=== PATIENT | female | born 1995 | race Caucasian/White ===

== ENCOUNTER 2017-06-29 10:39 | Outpatient (CLI) | payer MEDICAID ==
--- NOTE | 2017-06-29 12:52 | RADIOLOGY REPORT (SQ) ---
EXAM DESCRIPTION: U/S PROFILE W/O STRESS COMPLETED DATE/TIME: 06/29/2017 12:19 pm REASON FOR STUDY: BPP, BHARGAVI, presentation COMPARISON: None. TECHNIQUE: Limited rodriguez-scale realtime and static images of the fetus to measure specified parameter s. LIMITATIONS: None. FINDINGS: HEART RATE: 135 beats per minute. BHARGAVI: 17.5 cm. BREATHING MOVEMENT: 2 points. MOVEMENT: 2 points. POSTURE AND TONE: 2 points. QUALITATIVE BHARGAVI: 2 points. OTHER: Vertex presentation PE IMPRESSION: BIOPHYSICAL PROFILE: 03/10. Trimester of : Third - 28 weeks to delivery COMMENT: BREATHING MOVEMENTS: 2 POINTS: PRESENT 0 POINTS: ABSENT MOTION: 2 POINTS: PRESENT 0 POINTS: ABSENT TONE: 2 POINTS: PRESENT 0 POINTS: ABSENT AMNIOTIC FLUID VOLUME: 2 POINTS: LARGEST POCKET GREATER THAN 2 CM DEPTH. 0 POINTS: NO POCKET OF 2 CM. TECHNICAL DOCUMENTATION: JOB ID: [id number] [employer] [place] - 2- All Rights Reserved
== END 2017-06-29 13:06 | disposition home or self-care (01) ==
LOC: LC 10:39
PROVIDERS: ATTEND Student in an Organized Health Care Education/Training Program
PROC: 4A1HXCZ Monitoring of Products of Conception, Cardiac Rate, External Approach (ICD-10-PCS; principal; 2017-06-29)
DX: O36.8130 Decreased fetal movements, third trimester, not applicable or unspecified (principal); Z3A.34 34 weeks gestation of pregnancy
CPT/HCPCS: 76819

== ENCOUNTER 2017-07-13 01:11 | Inpatient (IN) | payer MEDICAID ==
[2017-07-13 02:04] LABS: AMORPHOUS SEDIMENT,URINE TRACE /HPF; APPEARANCE,URINE CLOUDY; BILIRUBIN,URINE NEGATIVE (NEGATIVE); GLUCOSE, URINE NEGATIVE (NEGATIVE); KETONES,URINE NEGATIVE (NEGATIVE); LEUKOCYTE ESTERASE,URINE TRACE (NEGATIVE); NITRITE,URINE NEGATIVE (NEGATIVE); PROTEIN,URINE 100 mg/dL (NEGATIVE); URINE SPECIFIC GRAVITY 1.014; UROBILINOGEN,URINE NEGATIVE mg/dL (<2.0)
[2017-07-13 02:08] LABS: AMNISURE (ROM) POSITIVE (NEGATIVE)
[2017-07-13 02:20] LABS: URINE BARBITURATES SCREEN NEGATIVE; URINE METHADONE SCREEN NEGATIVE; URINE OPIATES LOW NEGATIVE; URINE PHENCYCLIDINE SCREEN NEGATIVE
[2017-07-13] MEDS ORDERED: PENICILLIN G POTASSIUM 5,000,000 UNIT in DEXTROSE 5%-WATER 100 ML IV ONE (02:20)
[2017-07-13] MEDS ORDERED: RINGERS SOLUTION,LACTATED 1,000 ML IV PRN (02:20)
[2017-07-13] MEDS ORDERED: PENICILLIN G-K 5 MILLION UNIT VIAL IV PRN (02:28)
[2017-07-13] MEDS ORDERED: PENICILLIN G-K 5 MILLION UNIT VIAL ONE ×4 (02:28→10:43)
[2017-07-13 03:05] LABS: ABSOLUTE EOSINOPHILS # (AUTO) 0.1 10^3/uL (0.0-0.6); ABSOLUTE LYMPHOCYTES (AUTO) 2.4 10^3/uL (0.5-4.7); ABSOLUTE MONOCYTES (AUTO) 1.4 10^3/uL (0.1-1.4); ABSOLUTE NEUT (AUTO) 10.3 10^3/uL (1.7-8.2); BASOPHILS % (AUTO) 0.2 % (0-2); HEMATOCRIT 36.7 % (36.0-47.0); HEMOGLOBIN 12.4 g/dL (12.0-15.5); HGB HCT DIFFERENCE 0.5; MEAN CORPUSCULAR HEMOGLOBIN 32.2 pg (27.0-33.4); MEAN CORPUSCULAR HGB CONC 33.9 g/dL (32.0-36.0); MEAN CORPUSCULAR VOLUME 95 fl (80-97); MONOCYTES % (AUTO) 9.7 % (3-13); RED BLOOD COUNT 3.87 10^6/uL (3.72-5.28); RED CELL DISTRIBUTION WIDTH 13.5 % (11.5-14.0); SEGMENTED NEUTROPHILS % (AUTO) 72.1 % (42-78); WHITE BLOOD COUNT 14.3 10^3/uL (4.0-10.5)
[2017-07-13] MEDS ORDERED: OXYTOCIN/NORMAL SALINE 20 UNIT/1,000 ML RTUINJ IV PRN ×3 (06:13→14:11)
[2017-07-13] MEDS ORDERED: OXYTOCIN/NORMAL SALINE 0 UNIT/0 ML RTUINJ ONE (06:16)
[2017-07-13] MEDS ORDERED: PENICILLIN G POTASSIUM 2,500,000 UNIT in DEXTROSE 5%-WATER 50 ML IV SCH (06:21)
[2017-07-13] MEDS ORDERED: ONDANSETRON HCL INJ/PF 4 MG/2 ML SDV ONE (08:16)
[2017-07-13] MEDS ORDERED: MISOPROSTOL 0.1 MG TABLET PV ONE (08:41)
[2017-07-13] MEDS ORDERED: MISOPROSTOL 0.1 MG TABLET ONE (08:45)
[2017-07-13] MEDS ORDERED: ONDANSETRON HCL INJ/PF 4 MG/2 ML SDV IV ONE (09:00)
[2017-07-13] MEDS: PENICILLIN G-K 5 MILLION UNIT VIAL IV SCH ×4 (10:00→22:00)
[2017-07-13] MEDS ORDERED: NALBUPHINE HCL INJ 10 MG/1 ML AMPULE IM ONE (11:08)
[2017-07-13] MEDS ORDERED: PROMETHAZINE HCL INJ 25 MG/1 ML VIAL IV ONE (11:10)
[2017-07-13] MEDS ORDERED: NALBUPHINE HCL INJ 10 MG/1 ML AMPULE IV ONE (11:11)
[2017-07-13] MEDS ORDERED: NALBUPHINE HCL INJ 10 MG/1 ML AMPULE ONE (11:13)
[2017-07-13] MEDS ORDERED: PROMETHAZINE HCL INJ 25 MG/1 ML VIAL ONE (11:13)
[2017-07-13] MEDS ORDERED: MISOPROSTOL 0.2 MG TABLET ONE (13:07)
[2017-07-13] MEDS ORDERED: OXYTOCIN/NORMAL SALINE 20 UNIT/1,000 ML RTUINJ ONE (13:07)
[2017-07-13] MEDS ORDERED: LIDOCAINE 1% INJ-PF (10 MG/ML) 30 ML SDV ONE (13:07)
[2017-07-13] MEDS ORDERED: ZOLPIDEM TARTRATE 5 MG TABLET PO PRN (14:11)
[2017-07-13] MEDS ORDERED: DIPH/PERTUSS(ACELL)/TETANUS VAC/PF 0.5 ML SYR (>=10YO) IM PRN (14:11)
[2017-07-13] MEDS ORDERED: MEASLES,MUMPS&RUBELLA VACC/PF 0.5 ML VIAL SUBCUT PRN (14:11)
[2017-07-13] MEDS ORDERED: ACETAMINOPHEN 650 MG SUPP.RECT PR PRN (14:11)
[2017-07-13] MEDS ORDERED: PROMETHAZINE HCL 25 MG SUPP.RECT PR PRN (14:11)
[2017-07-13] MEDS ORDERED: GLYCERIN/WITCH HAZEL LEAF 1 EACH MED..PAD TP PRN (14:11)
[2017-07-13] MEDS ORDERED: DIBUCAINE 1% OINTMENT 28 GM TP PRN (14:11)
[2017-07-13] MEDS ORDERED: PROMETHAZINE HCL 25 MG TABLET PO PRN (14:11)
[2017-07-13] MEDS ORDERED: DIPHENHYDRAMINE HCL 25 MG CAPSULE PO PRN (14:11)
[2017-07-13] MEDS ORDERED: ACETAMINOPHEN WITH CODEINE #3 TABLET PO PRN ×2 (14:11)
[2017-07-13] MEDS ORDERED: NA PHOS,M-B/NA PHOS,DI-BA (ADULT) 133 ML ENEMA PR PRN (14:11)
[2017-07-13] MEDS ORDERED: PROMETHAZINE HCL INJ 25 MG/1 ML VIAL IV PRN (14:11)
[2017-07-13] MEDS ORDERED: PSEUDOEPHEDRINE HCL 30 MG TABLET PO PRN (14:11)
[2017-07-13] MEDS ORDERED: MAGNESIUM HYDROXIDE SUSP 30 ML UDCUP PO PRN (14:11)
[2017-07-13] MEDS ORDERED: BENZOCAINE/MENTHOL AEROSOL SPRAY 56 ML TOP PRN (14:11)
[2017-07-13] MEDS ORDERED: IBUPROFEN 800 MG TABLET ONE (14:34)
--- NOTE | 2017-07-13 15:25 | Delivery Summary ---
Del Sum A-C Datetime Report Generated by CPN: 07/13/2017 15:25 DELIVERY PERSONNEL DELIVERY PERSONNEL: [id number] Delivery Doctor:: Conchis Rush CNM Labor and Delivery Nurse:: Lilian Clarke, evs manager Nurse:: Leonela Patel, RNC Nursery Nurse:: Elis Shea, RN MATERNAL INFORMATION Delivery Anesthesia: None Medications After Delivery: Pitocin Bolus-Please Comment Meds After Delivery Comment: Pitocin 20 units in 1 L NS bolusing per order Estimated Blood Loss (ml): 350 Maternal Complications: None Provider Comments: SHARRI, LOOSE NUCHAL CORD-DELIVERED THROUGH. VIABLE FEMALE WITHOUT SPONTANEOUS CRY AND NOT RESPONDING TO STIMULATION, CORD CUT AND BABY TX TO WARMER FOR BETTER ASSESSMENT. RN BELLEVANCE PRESENT AND INITIATED PPV, CNM APPLIED PULSE OX AND NURSERY NURSE CALLED. NURSERY RN IN WITHIN 2 MINS AFTER WITH BABY STARTING TO HAVE SPONTANEOUS RESPIRATIONS. RIGHT PERIURETHRAL LACERATION NOT REPAIRED. SPONTANEOUS INTACT PLACENTA WITH 3VC. MOTHER STABLE IN L_D #2, TX TO NURSERY FOR CLOSER OBSERVATION-STABLE UPON TRANSFER. LABOR SUMMARY EDC: 08/10/2017 00:00 No. Babies in Womb: 1 Attempted: No Labor Anesthesia: IV Sedation LABOR INFORMATION Reason for Induction: Premature Rupture of Membranes Onset of Labor: 07/13/2017 11:30 Complete Dilatation: 07/13/2017 13:03 Cervical Ripening Agents: Cytotec @ Oxytocin: N/A Group B Beta Strep: Unknown Antibiotics # of Doses: 3 Antibiotics Time of Last Dose: 1045 Name of Antibiotic Given: PCN Steroids Given: None Reason Steroids Not Administered: Not Applicable MEMBRANES Membranes Rupture Method: Spontaneous Rupture of Membranes: 07/13/2017 00:30 Length of Rupture (hr): 12.95 Amniotic Fluid Color: Clear Amniotic Fluid Amount: Moderate Amniotic Fluid Odor: Normal STAGES OF LABOR Stage 1 hr: 1 Stage 1 min: 33 Stage 2 hr: 0 Stage 2 min: 24 Stage 3 hr: 0 Stage 3 min: 10 Total Time in Labor hr: 2 Total Time in Labor min: 7 VAGINAL DELIVERY Episiotomy: None Laceration #1: Periurethral Laceration Extension #1: N/A Laceration Repair: Not Applicable Sponge Count Correct: N/A Sharps Count Correct: N/A CSECTION DELIVERY Primary Indication: N/A Secondary Indication: N/A CSection Incidence: N/A Labor: N/A Elective: N/A CSection Incision: N/A BABY A INFORMATION Infant Delivery Date/Time: 07/13/2017 13:27 Method of Delivery: Vaginal Born in Route : No : N/A Forceps: N/A Vacuum Extraction: N/A Shoulder Dystocia : No PRESENTATION/POSITION BABY A Presentation: Cephalic Cephalic Presentation: Vertex Vertex Position: Right Occipital Anterior Breech Presentation: N/A PLACENTA INFORMATION BABY A Placenta Delivery Time : 07/13/2017 13:37 Placenta Method of Delivery: Spontaneous Placenta Status: Delivered SCORES BABY A Heart Rate 1 min: >100 bpm Resp Effort 1 min: Absent Reflex Irritability 1 min: No Response Muscle Tone 1 min: Flaccid Color 1 min: Blue/Pale Resuscitation Effort 1 min: Tactile Stimulation SCORE 1 MIN: 2 Heart Rate 5 min: >100 bpm Resp Effort 5 min: Slow, Irregular Reflex Irritability 5 min: No Response Muscle Tone 5 min: Some Flexion of Extremities Color 5 min: Body [place], Extremities Blue SCORE 5 MIN: 5 Heart Rate 10 min: >100 bpm Resp Effort 10 min: Slow, Irregular Reflex Irritability 10 min: No Response Muscle Tone 10 min: Some Flexion of Extremities Color 10 min: Body [place], Extremities Blue SCORE 10 MIN: 5 Heart Rate 15 min: >100 bpm Resp Effort 15 min: Good Cry Reflex Irritability 15 min: Cough or Sneeze or Pulls Away Muscle Tone 15 min: Active Motion Color 15 min: Body [place], Extremities Blue SCORE 15 MIN: 9 INFANT INFORMATION BABY A Gestational Age at Delivery: 36.0 Gestational Status: Late - 34- 36.6 Weeks Infant Outcome : Liveborn Infant Condition : Fair Sex: Female IDENTIFICATION BABY A Verification Date/Time: 07/13/2017 13:53 ID Band Number: [id number] Mother's Name Verified: Yes RN Verifying : CTawnya Clarke, DTawnya Patel, RNC WEIGHT/LENGTH BABY A Infant Birthweight (gm): 2655 Weight (lb): 5 Infant Weight (oz): 14 Length (in): 19.50 Length (cm): 49.53 CORD INFORMATION BABY A No. Cord Vessels: 3 Nuchal Cord : Around Neck x1, Loose Cord Blood Taken: Yes-For Storage (Mom's Blood type +) Infant Suction: Mouth; Nose ASSESSMENT BABY A Infant Complications: Decreased Variability Skin to Skin: No Skin to Skin Time (min): 0 BABY B INFORMATION : N/A SIGNATURES Assignment: Florencia Hollis MD Signature: with User ID: [email or web address] : with User ID: [email or web address] : I was personally available for consultation and serving as supervising physician for the P.
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
[2017-07-13] MEDS: DOCUSATE SODIUM 100 MG CAPSULE PO SCH (17:41)
[2017-07-13] MEDS: FERROUS SULFATE 325 MG TABLET PO SCH (17:41)
[2017-07-13] MEDS ORDERED: INFLUENZA ADLT QUAD (36MOS+) 2017-18 VAC 0.5 ML SYR IM PRN (18:56)
[2017-07-13] MEDS: IBUPROFEN 800 MG TABLET PO SCH (22:07)
[2017-07-13] MEDS: FAMOTIDINE 20 MG TABLET PO SCH (22:07)
[2017-07-14] MEDS: IBUPROFEN 800 MG TABLET PO SCH ×3 (05:30→21:52)
[2017-07-14] MEDS: PENICILLIN G-K 5 MILLION UNIT VIAL IV SCH ×2 (05:38→05:39)
[2017-07-14 07:41] LABS: HEMATOCRIT 31.4 % (36.0-47.0); HEMOGLOBIN 10.7 g/dL (12.0-15.5); HGB HCT DIFFERENCE 0.7; MEAN CORPUSCULAR HEMOGLOBIN 32.5 pg (27.0-33.4); MEAN CORPUSCULAR VOLUME 96 fl (80-97); RED BLOOD COUNT 3.28 10^6/uL (3.72-5.28); RED CELL DISTRIBUTION WIDTH 13.4 % (11.5-14.0); WHITE BLOOD COUNT 14.3 10^3/uL (4.0-10.5)
--- NOTE | 2017-07-14 10:05 | PDOC PROGRESS REPORT ---
Subjective-OB Subjective: Post Delivery Day: 21 year old. Denies any needs at this time Doing well, no c/o, hsb at BS, breast feeding, voiding, eating, mod lochia Physical Exam (OB) Vital Signs: Temp Pulse Resp BP Pulse Ox 98.3 F 66 16 100/56 L 98 07/14/17 08:00 07/14/17 08:00 07/14/17 08:00 07/14/17 08:00 07/14/17 08:00 Intake & Output 07/13/17 07/14/17 07/15/17 06:59 06:59 06:59 Weight 94.8 kg - PIH/Pre-Eclampsia Clonus: Negative Headache: Absent Epigastric Pain: No Visual Changes: No - Lochia Lochia Amount: Small 10-25 ml Lochia Color: Rubra/Red - Abdomen Description: Round Hernia Present: No Fundal Description: Firm Fundal Height: u/u - u/2 Objective-Diagnostic Laboratory: 07/14/17 07:17 07/14/17 07:17 WBC 14.3 H RBC 3.28 L Hgb 10.7 L Hct 31.4 L MCV 96 MCH 32.5 MCHC 34.0 RDW 13.4 Plt Count 122 L Assessment and Plan(PN) - Assessment and Plan (1) Vaginal delivery Is this a current diagnosis for this admission?: Yes (2) care insufficient Qualifiers: Trimester: unspecified trimester Qualified Code(s): O09.30 - Supervision of with insufficient care, unspecified trimester Is this a current diagnosis for this admission?: Yes (3) Asthma Qualifiers: Asthma severity: mild Is this a current diagnosis for this admission?: Yes (4) premature rupture of membranes (PPROM) with unknown onset of labor Is this a current diagnosis for this admission?: Yes - Time Spent with Patient Time with patient: Less than 15 minutes Smoking Education Provided: Over 3 minutes Medications reviewed and adjusted accordingly: Yes - Disposition Anticipated Discharge: Home Within: within 24 hours
[2017-07-14] MEDS: SENNOSIDES/DOCUSATE 8.6-50 MG 1 EACH TABLET PO SCH (10:47)
[2017-07-14] MEDS: DOCUSATE SODIUM 100 MG CAPSULE PO SCH ×2 (10:48→17:38)
[2017-07-14] MEDS: FAMOTIDINE 20 MG TABLET PO SCH ×2 (10:48→21:52)
[2017-07-14] MEDS: FERROUS SULFATE 325 MG TABLET PO SCH ×2 (10:48→17:38)
[2017-07-14] MEDS: PRENATAL VITAMIN W DHA CAPSULE PO SCH (10:48)
[2017-07-15] MEDS: IBUPROFEN 800 MG TABLET PO SCH ×2 (06:05→13:13)
[2017-07-15] MEDS: FAMOTIDINE 20 MG TABLET PO SCH (09:23)
[2017-07-15] MEDS: FERROUS SULFATE 325 MG TABLET PO SCH (09:23)
[2017-07-15] MEDS: PRENATAL VITAMIN W DHA CAPSULE PO SCH (09:23)
[2017-07-15] MEDS: SENNOSIDES/DOCUSATE 8.6-50 MG 1 EACH TABLET PO SCH (09:24)
[2017-07-15] MEDS: DOCUSATE SODIUM 100 MG CAPSULE PO SCH (09:24)
[2017-07-15 10:44] VITALS: BP 95/43
--- NOTE | 2017-07-15 11:40 | PDOC DISCHARGE SUMMARY ---
Final Diagnosis Discharge Date: 07/15/17 - Final Diagnosis (1) Acute blood loss anemia Is this a current diagnosis for this admission?: Yes (2) delivery Is this a current diagnosis for this admission?: Yes (3) Vaginal delivery Is this a current diagnosis for this admission?: Yes (4) care insufficient Is this a current diagnosis for this admission?: Yes (5) Asthma Is this a current diagnosis for this admission?: Yes (6) premature rupture of membranes (PPROM) with unknown onset of labor Is this a current diagnosis for this admission?: Yes Discharge Data - Discharge Medication Home Medications: Vit/Iron Fum/Folic AC [ Tablet] 1 tab PO DAILY 06/29/17 Reason(s) for Admission: Other - premature rupture of membranes Procedures: Ultrasound Intrapartum Procedure(s): Spontaneous Vaginal Delivery Complication(s): Laceration-Periurethral - Diagnosis Test Laboratory: Temp Pulse Resp BP Pulse Ox 98.3 F 68 16 97/58 L 98 07/15/17 07:38 07/15/17 07:38 07/14/17 20:24 07/15/17 07:38 07/15/17 07:38 07/13/17 07/13/17 07/14/17 01:45 02:35 07:17 RBC 3.87 3.28 L Hgb 12.4 10.7 L Hct 36.7 31.4 L Urine Opiates Screen NEGATIVE - Discharge information/Instructions Discharge Activity: Activity As Tolerated, Balance Activity w/Rest, No Lifting Over 10 Pounds, Pelvic Rest, No tub bath Discharge Diet: Regular Disposition: HOME, SELF-CARE Follow up with: [facility] in: 4, Weeks
== END 2017-07-15 14:30 | disposition home or self-care (01) | DRG 775 ==
LOC: LC 01:11 → LR 02:22 → 2S 16:08
PROVIDERS: ADMIT Obstetrics & Gynecology Gynecology; ATTEND Obstetrics & Gynecology Gynecology
PROC: 10E0XZZ Delivery of Products of Conception, External Approach (ICD-10-PCS; principal; 2017-07-13)
PROC: 4A1HXCZ Monitoring of Products of Conception, Cardiac Rate, External Approach (ICD-10-PCS; 2017-07-13)
PROC: 3E0234Z Introduction of Serum, Toxoid and Vaccine into Muscle, Percutaneous Approach (ICD-10-PCS; 2017-07-15)
DX: O42.013 Preterm premature rupture of membranes, onset of labor within 24 hours of rupture, third trimester (principal); O99.52 Diseases of the respiratory system complicating childbirth; J45.909 Unspecified asthma, uncomplicated; O71.82 Other specified trauma to perineum and vulva; O99.344 Other mental disorders complicating childbirth; F32.9 Major depressive disorder, single episode, unspecified; F41.9 Anxiety disorder, unspecified; O69.81X0 Labor and delivery complicated by cord around neck, without compression, not applicable or unspecified; Z87.891 Personal history of nicotine dependence; Z88.3 Allergy status to other anti-infective agents; Z23 Encounter for immunization; Z3A.36 36 weeks gestation of pregnancy; Z37.0 Single live birth
CPT/HCPCS: 36415; 80307; 81001; 84112; 85025; 85027; 86592; 86850; 86900; 86901; 90686; 99465; J2300; J2405; J2540; J2550; J2590; J3490

== ENCOUNTER 2018-04-29 12:16 | Emergency (ER) | payer MEDICAID ==
--- NOTE | 2018-04-29 13:05 | ER Document Report ---
ED GI/ - General Chief Complaint: Vaginal Bleeding Stated Complaint: VAGINAL BLEEDING/CRAMPING Time Seen by Provider: 04/29/18 12:56 Mode of Arrival: Ambulatory Information source: Patient TRAVEL OUTSIDE OF THE [place] IN LAST 30 DAYS: No - HPI Notes: 04/29/18 13:05 Dictated - Related Data Allergies/Adverse Reactions: erythromycin base Adverse Reaction (Verified 07/13/17 01:25) Past Medical History - General Last Menstrual Period: 03/01/18 - Social History Smoking Status: Former Smoker Frequency of alcohol use: None Drug Abuse: None Family History: Reviewed & Not Pertinent Patient has suicidal ideation: No Patient has homicidal ideation: No Pulmonary Medical History: Reports: Hx Asthma Renal/ Medical History: Denies: Hx Peritoneal Dialysis Review of Systems - Review of Systems Notes: Dictated Physical Exam - Vital signs Vitals: Temp Pulse Resp BP Pulse Ox 98.7 F 67 18 121/58 L 98 04/29/18 12:22 04/29/18 12:22 04/29/18 12:22 04/29/18 12:22 04/29/18 12:22 - Notes Notes: Dictated Course - Vital Signs Vital signs: Temp Pulse Resp BP Pulse Ox 98.7 F 67 18 121/58 L 98 04/29/18 12:22 04/29/18 12:22 04/29/18 12:22 04/29/18 12:22 04/29/18 12:22 - Laboratory Result Diagrams: 04/29/18 13:05 Laboratory results interpreted by me: 04/29/18 13:05 WBC 11.3 H - Diagnostic Test Radiology reviewed: Reports reviewed - Ultrasound of the pelvis shows 7-week Discharge - Discharge Clinical Impression: Intrauterine normal Qualifiers: Trimester: first trimester Qualified Code(s): Z34.91 - Encounter for supervision of normal , unspecified, first trimester Condition: Fair Disposition: HOME, SELF-CARE Instructions: (OM) Referrals: ALDAIR MARTINEZ MD [Primary Care Provider] - Follow up as needed
[2018-04-29 13:10] LABS: ABSOLUTE BASOPHILS # (AUTO) 0.1 10^3/uL (0.0-0.2); ABSOLUTE EOSINOPHILS # (AUTO) 0.4 10^3/uL (0.0-0.6); ABSOLUTE LYMPHOCYTES (AUTO) 2.7 10^3/uL (0.5-4.7); ABSOLUTE MONOCYTES (AUTO) 0.9 10^3/uL (0.1-1.4); ABSOLUTE NEUT (AUTO) 7.2 10^3/uL (1.7-8.2); BASOPHILS % (AUTO) 0.7 % (0-2); EOSINOPHILS % (AUTO) 3.6 % (0-6); HEMATOCRIT 37.6 % (36.0-47.0); HEMOGLOBIN 12.8 g/dL (12.0-15.5); LYMPHOCYTES % (AUTO) 23.5 % (13-45); MEAN CORPUSCULAR HEMOGLOBIN 31.8 pg (27.0-33.4); MEAN CORPUSCULAR HGB CONC 34.1 g/dL (32.0-36.0); MEAN CORPUSCULAR VOLUME 93 fl (80-97); MONOCYTES % (AUTO) 8.3 % (3-13); PLATELET COUNT 203 10^3/uL (150-450); RED BLOOD COUNT 4.03 10^6/uL (3.72-5.28); RED CELL DISTRIBUTION WIDTH 13.1 % (11.5-14.0); SEGMENTED NEUTROPHILS % (AUTO) 63.9 % (42-78); TOTAL CELLS COUNTED % (AUTO) 100 %; WHITE BLOOD COUNT 11.3 10^3/uL (4.0-10.5)
--- NOTE | 2018-04-29 14:15 | RADIOLOGY REPORT (SQ) ---
EXAM DESCRIPTION: U/S BL3RPUM TRNABD 1GES W/ODOP COMPLETED DATE/TIME: 04/29/2018 2:04 pm REASON FOR STUDY: Abdominal cramp/spotting/ COMPARISON: None. TECHNIQUE: Transabdominal static and realtime grayscale images acquired of the pelvis. Additional se lected spectral and color Doppler images recorded. All images stored on PACs. bHCG: Not available. CLINICAL DATES: LMP 03/01/2018. 8 weeks 3 days LIMITATIONS: None. FINDINGS: FETUS: Single Living intrauterine . ULTRASOUND EGA: 8 weeks 4 days ULTRASOUND SASKIA: 12/05/2018 EFW: Not applicable less than 20 weeks CRL: 2 cm. FHR: 175 beats per minute. AMNIOTIC FLUID: Adequate amount PLACENTA: Not yet developed due to early gestation SUBCHORIONIC BLEED: No SIZE OF BLEED: Not applicable. UTERUS: No masses. No anomalies. CERVICAL LENGTH: 3.9 cm. Closed. RIGHT ADNEXA: Ovary not seen. No adnexal free fluid. No adnexal masses. LEFT ADNEXA: Ovary not seen. No adnexal free fluid. No adnexal masses. FREE FLUID: None. OTHER: No other significant finding. IMPRESSION: LIVING INTRAUTERINE . EGA 8 weeks 4 days. Trimester of : First - 0 to 13 weeks. TECHNICAL DOCUMENTATION: JOB ID: [id number] [employer]- All Rights Reserved rev-12/18 Reading location - IP/workstation name: [email or web address]
[2018-04-29 14:34] VITALS: BP 112/60
== END 2018-04-29 14:30 | disposition home or self-care (01) ==
LOC: ER 12:16
DX: O20.9 Hemorrhage in early pregnancy, unspecified (principal); O99.511 Diseases of the respiratory system complicating pregnancy, first trimester; J45.909 Unspecified asthma, uncomplicated; Z3A.01 Less than 8 weeks gestation of pregnancy; Z88.1 Allergy status to other antibiotic agents
CPT/HCPCS: 36415; 76801; 84702; 85025; 99284

== ENCOUNTER 2018-12-08 11:53 | Inpatient (IN) | payer MEDICAID ==
[2018-12-08 12:52] LABS: APPEARANCE,URINE SLIGHTLY-CLOUDY; BILIRUBIN,URINE NEGATIVE (NEGATIVE); COLOR,URINE YELLOW; GLUCOSE, URINE NEGATIVE (NEGATIVE); KETONES,URINE NEGATIVE (NEGATIVE); LEUKOCYTE ESTERASE,URINE MODERATE (NEGATIVE); NITRITE,URINE NEGATIVE (NEGATIVE); PROTEIN,URINE NEGATIVE (NEGATIVE); URINE SPECIFIC GRAVITY 1.018; UROBILINOGEN,URINE NEGATIVE mg/dL (<2.0)
[2018-12-08 13:08] LABS: URINE AMPHETAMINES SCREEN NEGATIVE; URINE BARBITURATES SCREEN NEGATIVE; URINE BENZODIAZEPINES SCREEN NEGATIVE; URINE COCAINE SCREEN NEGATIVE; URINE MARIJUANA (THC) SCREEN NEGATIVE; URINE METHADONE SCREEN NEGATIVE; URINE PHENCYCLIDINE SCREEN NEGATIVE
[2018-12-08] MEDS ORDERED: OXYTOCIN/NORMAL SALINE 20 UNIT/1,000 ML RTUINJ ONE (15:43)
[2018-12-08] MEDS ORDERED: LIDOCAINE 1% INJ-PF (10 MG/ML) 30 ML SDV ONE (15:43)
[2018-12-08] MEDS ORDERED: MISOPROSTOL 0.2 MG TABLET ONE (15:43)
[2018-12-08] MEDS ORDERED: OXYTOCIN 10 UNIT/ML VIAL ONE (15:43)
[2018-12-08 15:55] LABS: ABSOLUTE EOSINOPHILS # (AUTO) 0.1 10^3/uL (0.0-0.6); ABSOLUTE LYMPHOCYTES (AUTO) 2.7 10^3/uL (0.5-4.7); ABSOLUTE NEUT (AUTO) 9.8 10^3/uL (1.7-8.2); BASOPHILS % (AUTO) 0.2 % (0-2); EOSINOPHILS % (AUTO) 0.6 % (0-6); HEMATOCRIT 38.6 % (36.0-47.0); HEMOGLOBIN 12.8 g/dL (12.0-15.5); LYMPHOCYTES % (AUTO) 19.8 % (13-45); MEAN CORPUSCULAR HEMOGLOBIN 31.3 pg (27.0-33.4); MEAN CORPUSCULAR HGB CONC 33.2 g/dL (32.0-36.0); MEAN CORPUSCULAR VOLUME 94 fl (80-97); MONOCYTES % (AUTO) 7.2 % (3-13); PLATELET COUNT 157 10^3/uL (150-450); RED CELL DISTRIBUTION WIDTH 13.8 % (11.5-14.0); SEGMENTED NEUTROPHILS % (AUTO) 72.2 % (42-78); TOTAL CELLS COUNTED % (AUTO) 100 %; WHITE BLOOD COUNT 13.6 10^3/uL (4.0-10.5)
[2018-12-08] MEDS ORDERED: RINGERS SOLUTION,LACTATED 1,000 ML IV ONE (16:24)
[2018-12-08] MEDS ORDERED: RINGERS SOLUTION,LACTATED 1,000 ML IV PRN (16:24)
[2018-12-08] MEDS ORDERED: ALBUTEROL SULFATE HFA (90 MCG/PUFF) 200 PUFF/8.5 GM MDI IH PRN (16:25)
[2018-12-08] MEDS ORDERED: NALBUPHINE HCL INJ 10 MG/1 ML AMPULE INJ ONE ×2 (16:28→17:15)
--- NOTE | 2018-12-08 16:49 | Admission Physical ---
Datetime Report Generated by CPN: 12/08/2018 16:49 CURRENT ADMISSION Hx Assessment: The History has been Reviewed and is Current Chief Complaint: Uterine Contractions Indication for Induction: Not Applicable Admit Impression : Term, Intrauterine ; Active Labor Admit Plan: Admit to Unit; Initiate Labor Protocol ALLERGIES Medication Allergies: Yes Medication Allergies: erythromycin base (07/13/2017) Latex: No Latex Allergies OBSTETRICAL HISTORY EDC: 12/06/2018 00:00 : 2 Para: 1 : 1 Livin Cesareans: 0 Gestational Diabetes: No Rh Sensitization: No Incompetent Cervix: No JOANNE: No Infertility: No ART Treatment: No Uterine Anomaly: No IUGR: No Hx Previous C/S: No Macrosomia: No Hx Loss/Stillborn: No PIH: No Hx : No Placenta Previa/Abruption: No Depression/PP Depression: No PTL/PROM: Yes Post Hemorrhage: No Current Procedures: Ultrasound Obstetrical History Comments: 2016 PTD 36 weeks G2- current p17 shots SEE RECORDS Alcohol: No Marijuana : No Cocaine: No Other Illicit Drugs: No Cigarettes: Never Smoker. [id number] MEDICAL HISTORY Diabetes: No Blood Transfusion: No Pulmonary Disease (Asthma, TB): Yes Breast Disease: No Hypertension: No Bottom Scrubber Surgery: No Heart Disease: No Hosp/Surgery: Yes Autoimmune Disorder: No Anesthetic Complications: No Kidney Disease: No Abnormal Pap Smear: Yes Neuro/Epilepsy: Yes Psychiatric Disorders: No Other Medical Diseases: No Hepatitis/Liver Disease: No Significant Family History: No Varicosities/Phlebitis: No Trauma/Violence : No Thyroid Dysfunction: No Medical History Comments: anemia, depression and anxiety, seizures focal motor as a child age 16 last seizure, asthma albuterol 8 months ago, obesity, childbirth INFECTIOUS HISTORY Gonorrhea: No Genital Herpes: No Chlamydia: No Tuberculosis: No Syphilis: No Hepatitis: No HIV/AIDS Exposure: No Rash or Viral Illness: No HPV: Yes Infectious History Comments: 2018 ASCUS HPV PHYSICAL EXAM General: Normal Lungs: Normal Abdomen: Normal Genitourinary Exam: Normal Extremities: Normal Pelvic Type: Adequate Physical Exam Comments: pelvis proven to 5lbs 13oz Vital Signs: Reviewed; Within Normal Limits VAGINAL EXAM Contraction Comments: 1.5-2.5 MEMBRANES Membranes: Intact FETUS A EGA: 40.2 Monitoring: External US Decelerations: Variable FHR Category: Category II FHR Comments: Cat I tracing prior to cervical exam then variable decels after Presentation: Vertex Admit Comment: 23yo into L_D with contractions and with cervical change after walking. Pt. is A positive, RI, GBS neg and varicella non-immune. Medical hx significant for Obesity, ASCUS pap +HPV and delivery at 36w with prior . No concerns today, plan is to admit her at his time, epidural prn. Anticipate delivery. Dr. Roy in unit and aware of tracing. Position changes at this time. PLANS FOR LABOR AND DELIVERY Labor and Delivery: None Pain Management: Medications Feeding Preference: Both Benefit of Breast Feed Discussed: Yes Circumcision: Yes INFORMED CONSENT Assignment: Lesia Roy MD Signature: with User ID: [email or web address] : with User ID: [email or web address]
[2018-12-08] MEDS ORDERED: NALBUPHINE HCL INJ 10 MG/1 ML AMPULE ONE (17:15)
[2018-12-08] MEDS ORDERED: DIBUCAINE 1% OINTMENT 56 GM TP PRN (19:18)
[2018-12-08] MEDS ORDERED: MAGNESIUM HYDROXIDE SUSP 30 ML UDCUP PO PRN (19:18)
[2018-12-08] MEDS ORDERED: OXYTOCIN/NORMAL SALINE 20 UNIT/1,000 ML RTUINJ IV PRN (19:18)
[2018-12-08] MEDS ORDERED: PROMETHAZINE HCL 25 MG TABLET PO PRN (19:18)
[2018-12-08] MEDS ORDERED: DIPH/PERTUSS(ACELL)/TETANUS VAC/PF 0.5 ML SYR (>=10YO) IM PRN (19:18)
[2018-12-08] MEDS ORDERED: DIPHENHYDRAMINE HCL 25 MG CAPSULE PO PRN (19:18)
[2018-12-08] MEDS ORDERED: MEASLES,MUMPS&RUBELLA VACC/PF 0.5 ML VIAL SUBCUT PRN (19:18)
[2018-12-08] MEDS ORDERED: MISOPROSTOL 0.2 MG TABLET PR PRN (19:18)
[2018-12-08] MEDS ORDERED: ACETAMINOPHEN WITH CODEINE #3 TABLET PO PRN ×2 (19:18)
[2018-12-08] MEDS ORDERED: PROMETHAZINE HCL INJ 25 MG/1 ML VIAL IV PRN (19:18)
[2018-12-08] MEDS ORDERED: NA PHOS,M-B/NA PHOS,DI-BA (ADULT) 133 ML ENEMA PR PRN (19:18)
[2018-12-08] MEDS ORDERED: PSEUDOEPHEDRINE HCL 30 MG TABLET PO PRN (19:18)
[2018-12-08] MEDS ORDERED: BENZOCAINE/MENTHOL AEROSOL SPRAY 56 ML TOP PRN (19:18)
[2018-12-08] MEDS ORDERED: PROMETHAZINE HCL 25 MG SUPP.RECT PR PRN (19:18)
[2018-12-08] MEDS ORDERED: ACETAMINOPHEN 325 MG TABLET PO PRN (19:18)
[2018-12-08] MEDS ORDERED: ZOLPIDEM TARTRATE 5 MG TABLET PO PRN (19:18)
[2018-12-08] MEDS ORDERED: GLYCERIN/WITCH HAZEL LEAF 1 EACH MED..WIPE TP PRN (19:18)
--- NOTE | 2018-12-08 20:38 | Delivery Summary ---
Del Sum A-C Datetime Report Generated by CPN: 12/08/2018 20:38 DELIVERY PERSONNEL DELIVERY PERSONNEL: [id number] Delivery Doctor:: Lesia Roy MD Labor and Delivery Nurse:: Lilian Clarke RN Nursery Nurse:: Elis Shea RN Access Rn/BOOSTER OPERATOR: Chantellekecia Ceja, ST MATERNAL INFORMATION Delivery Anesthesia: None Medications After Delivery: Pitocin Drip 20 Units/1000ml NSS; Cytotec 1000mcg Per Rectum/Vagina Estimated Blood Loss (ml): 150 Maternal Complications: None Provider Comments: VFI delivered in Direct OA presentation. No nuchal cord. Shoulders and body delivered without difficulty. Cord doubly clamped and infant to maternal abdomen. Placenta delivered intact spontaneosly. Mild lower uterine segment atony unresolved with pitocin therefore cytotec 1000mcg MN given. Right labial laceration repaired with good hemostasis. Mother and baby stable upon provider leaving the room. LABOR SUMMARY EDC: 12/06/2018 00:00 No. Babies in Womb: 1 Attempted: No Labor Anesthesia: IV Sedation LABOR INFORMATION Reason for Induction: Not Applicable Onset of Labor: 12/08/2018 07:00 Complete Dilatation: 12/08/2018 18:42 Oxytocin: N/A Group B Beta Strep: negative Antibiotics # of Doses: 0 Steroids Given: None Reason Steroids Not Administered: Not Applicable MEMBRANES Membranes Rupture Method: Artificial Rupture of Membranes: 12/08/2018 17:13 Length of Rupture (hr): 1.63 Amniotic Fluid Color: Clear Amniotic Fluid Amount: Small Amniotic Fluid Odor: Normal STAGES OF LABOR Stage 1 hr: 11 Stage 1 min: 42 Stage 2 hr: 0 Stage 2 min: 9 Stage 3 hr: 0 Stage 3 min: 2 Total Time in Labor hr: 11 Total Time in Labor min: 53 VAGINAL DELIVERY Episiotomy: None Laceration #1: Vaginal Laceration Extension #1: N/A Laceration Repair: Yes Laceration Repair Note: Right labial laceration repaired with good hemostasis. Sponge Count Correct: Yes Sharps Count Correct: Yes BABY A INFORMATION Delivery Date/Time: 12/08/2018 18:51 Method of Delivery: Vaginal Born in Route : No : N/A Forceps: N/A Vacuum Extraction: N/A Shoulder Dystocia : No PRESENTATION/POSITION BABY A Presentation: Cephalic Cephalic Presentation: Vertex Vertex Position: OA Breech Presentation: N/A PLACENTA INFORMATION BABY A Placenta Delivery Time : 12/08/2018 18:53 Placenta Method of Delivery: Spontaneous Placenta Status: Delivered SCORES BABY A Heart Rate 1 min: >100 bpm Resp Effort 1 min: Good Cry Reflex Irritability 1 min: Cough or Sneeze or Pulls Away Muscle Tone 1 min: Active Motion Color 1 min: Blue/Pale Resuscitation Effort 1 min: Tactile Stimulation SCORE 1 MIN: 8 Heart Rate 5 min: >100 bpm Resp Effort 5 min: Good Cry Reflex Irritability 5 min: Cough or Sneeze or Pulls Away Muscle Tone 5 min: Active Motion Color 5 min: Body Interior, Extremities Blue SCORE 5 MIN: 9 INFANT INFORMATION BABY A Gestational Age at Delivery: 40.2 Gestational Status: Full Term- 39- 40.6 Weeks Outcome : Liveborn Condition : Stable Sex: Female IDENTIFICATION BABY A Verification Date/Time: 12/08/2018 19:12 ID Band Number: [id number] Mother's Name Verified: Yes Infant RN Verifying Infant: Duong Hollis RN WEIGHT/LENGTH BABY A Infant Birthweight (gm): 3572 Weight (lb): 7 Infant Weight (oz): 14 Length (in): 20.50 Length (cm): 52.07 CORD INFORMATION BABY A No. Cord Vessels: 3 Nuchal Cord : N/A Cord Blood Taken: Yes-For Storage (Mom's Blood type +) Suction: Mouth ASSESSMENT BABY A Skin to Skin: Yes BABY B INFORMATION : N/A SIGNATURES Signature: with User ID: [email or web address]
[2018-12-08] MEDS: FAMOTIDINE 20 MG TABLET PO SCH (22:15)
[2018-12-08] MEDS: IBUPROFEN 800 MG TABLET PO SCH (22:15)
[2018-12-09] MEDS: IBUPROFEN 800 MG TABLET PO SCH ×3 (05:15→21:58)
[2018-12-09 07:09] LABS: HEMOGLOBIN 11.4 g/dL (12.0-15.5); MEAN CORPUSCULAR HEMOGLOBIN 31.8 pg (27.0-33.4); MEAN CORPUSCULAR HGB CONC 33.5 g/dL (32.0-36.0); MEAN CORPUSCULAR VOLUME 95 fl (80-97); PLATELET COUNT 150 10^3/uL (150-450); RED BLOOD COUNT 3.58 10^6/uL (3.72-5.28); RED CELL DISTRIBUTION WIDTH 13.9 % (11.5-14.0)
[2018-12-09] MEDS: PRENATAL VITAMIN W DHA CAPSULE PO SCH (09:26)
[2018-12-09] MEDS: DOCUSATE SODIUM 100 MG CAPSULE PO SCH ×2 (09:27→18:01)
[2018-12-09] MEDS: SENNOSIDES/DOCUSATE 8.6-50 MG 1 EACH TABLET PO SCH (09:27)
[2018-12-09] MEDS: FAMOTIDINE 20 MG TABLET PO SCH ×2 (09:27→21:58)
[2018-12-09] MEDS: FERROUS SULFATE 325 MG TABLET PO SCH ×2 (09:27→18:01)
--- NOTE | 2018-12-09 10:04 | PDOC PROGRESS REPORT ---
Subjective-OB Progress Note for:: 12/09/18 Physical Exam (OB) Vital Signs: Temp Pulse Resp BP Pulse Ox 98.2 F 81 15 96/57 L 100 12/09/18 08:06 12/09/18 08:06 12/09/18 08:06 12/09/18 08:06 12/09/18 08:06 Intake & Output 12/08/18 12/09/18 12/10/18 06:59 06:59 06:59 Weight 108 kg - PIH/Pre-Eclampsia DTR's: 2 + Clonus: Negative Headache: Absent Epigastric Pain: No Visual Changes: No - Lochia Lochia Amount: Scant < 10 ml Lochia Color: Serosa/Brown - Abdomen Description: Soft Hernia Present: No Bowel Sounds: Normoactive Flatus Presence: Present Stool: Yes Fundal Description: Firm Fundal Height: u/u - u/2 Objective-Diagnostic Laboratory: 12/09/18 06:22 12/08/18 12/08/18 12/08/18 12:10 15:03 15:03 WBC 13.6 H RBC 4.10 Hgb 12.8 Hct 38.6 MCV 94 MCH 31.3 MCHC 33.2 RDW 13.8 Plt Count 157 Seg Neutrophils % 72.2 Lymphocytes % 19.8 Monocytes % 7.2 Eosinophils % 0.6 Basophils % 0.2 Absolute Neutrophils 9.8 H Absolute Lymphocytes 2.7 Absolute Monocytes 1.0 Absolute Eosinophils 0.1 Absolute Basophils 0.0 Urine Color YELLOW Urine Appearance SLIGHTLY-CLOUDY Urine pH 7.0 Ur Specific [place] 1.018 Urine Protein NEGATIVE Urine Glucose (UA) NEGATIVE Urine Ketones NEGATIVE Urine Blood LARGE H Urine Nitrite NEGATIVE Ur Leukocyte Esterase MODERATE H Blood Type A POSITIVE Antibody Screen NEGATIVE 12/09/18 06:22 WBC 17.0 H RBC 3.58 L Hgb 11.4 L Hct 34.0 L MCV 95 MCH 31.8 MCHC 33.5 RDW 13.9 Plt Count 150 Seg Neutrophils % Lymphocytes % Monocytes % Eosinophils % Basophils % Absolute Neutrophils Absolute Lymphocytes Absolute Monocytes Absolute Eosinophils Absolute Basophils Urine Color Urine Appearance Urine pH Ur Specific [place] Urine Protein Urine Glucose (UA) Urine Ketones Urine Blood Urine Nitrite Ur Leukocyte Esterase Blood Type Antibody Screen
[2018-12-10] MEDS: IBUPROFEN 800 MG TABLET PO SCH (05:12)
[2018-12-10 07:23] LABS: HEMATOCRIT 35.5 % (36.0-47.0); HEMOGLOBIN 11.7 g/dL (12.0-15.5); MEAN CORPUSCULAR HEMOGLOBIN 31.4 pg (27.0-33.4); MEAN CORPUSCULAR HGB CONC 33.1 g/dL (32.0-36.0); MEAN CORPUSCULAR VOLUME 95 fl (80-97); PLATELET COUNT 132 10^3/uL (150-450); RED BLOOD COUNT 3.74 10^6/uL (3.72-5.28); WHITE BLOOD COUNT 11.5 10^3/uL (4.0-10.5)
[2018-12-10 08:14] VITALS: BP 100/60
[2018-12-10] MEDS: SENNOSIDES/DOCUSATE 8.6-50 MG 1 EACH TABLET PO SCH (09:30)
[2018-12-10] MEDS: FAMOTIDINE 20 MG TABLET PO SCH (09:30)
[2018-12-10] MEDS: FERROUS SULFATE 325 MG TABLET PO SCH (09:30)
[2018-12-10] MEDS: PRENATAL VITAMIN W DHA CAPSULE PO SCH (09:30)
[2018-12-10] MEDS: DOCUSATE SODIUM 100 MG CAPSULE PO SCH (09:30)
--- NOTE | 2018-12-10 10:40 | PDOC DISCHARGE SUMMARY ---
Final Diagnosis Discharge Date: 12/10/18 - Final Diagnosis (1) Active labor at term Is this a current diagnosis for this admission?: Yes (2) Obstetric labial laceration, delivered, current hospitalization Is this a current diagnosis for this admission?: Yes (3) Vaginal delivery Is this a current diagnosis for this admission?: Yes (4) Asthma Is this a current diagnosis for this admission?: Yes Discharge Data - Discharge Medication Prescriptions: Albuterol Sulfate [Albuterol Sulfate Hfa] 2 puff PO Q4 #1 hfa.aer.ad Ibuprofen [Motrin 800 mg Tablet] 800 mg PO Q8HP PRN #60 tablet PRN Reason: Home Medications: Vit/Iron Fum/Folic AC [ Tablet] 1 tab PO DAILY 06/29/17 Albuterol Sulfate [Albuterol Sulfate Hfa] 2 puff PO Q4 #1 hfa.aer.ad 12/10/18 Ibuprofen [Motrin 800 mg Tablet] 800 mg PO Q8HP PRN #60 tablet 12/10/18 Procedures: NST Intrapartum Procedure(s): Spontaneous Vaginal Delivery Complication(s): Laceration-Labial - Diagnosis Test Laboratory: Temp Pulse Resp BP Pulse Ox 97.6 F 78 16 100/60 100 12/10/18 07:31 12/10/18 07:31 12/09/18 21:02 12/10/18 07:31 12/10/18 07:31 12/08/18 12/08/18 12/09/18 12:10 15:03 06:22 RBC 4.10 3.58 L Hgb 12.8 11.4 L Hct 38.6 34.0 L Urine Opiates Screen NEGATIVE 12/10/18 07:10 RBC 3.74 Hgb 11.7 L Hct 35.5 L Urine Opiates Screen - Discharge information/Instructions Discharge Activity: Balance Activity w/Rest, Pelvic Rest Discharge Diet: Regular Disposition: HOME, SELF-CARE Follow up with: [facility] in: 4, Weeks
== END 2018-12-10 13:12 | disposition home or self-care (01) | DRG 807 ==
LOC: LC 11:53 → LR 16:29 → 2S 22:09
PROVIDERS: ADMIT Student in an Organized Health Care Education/Training Program; ATTEND Student in an Organized Health Care Education/Training Program
PROC: 10E0XZZ Delivery of Products of Conception, External Approach (ICD-10-PCS; principal; 2018-12-08)
PROC: 0HQ9XZZ Repair Perineum Skin, External Approach (ICD-10-PCS; 2018-12-08)
DX: O99.214 Obesity complicating childbirth (principal); Z37.0 Single live birth; O76 Abnormality in fetal heart rate and rhythm complicating labor and delivery; E66.9 Obesity, unspecified; Z3A.40 40 weeks gestation of pregnancy; O62.2 Other uterine inertia; O70.0 First degree perineal laceration during delivery; O99.02 Anemia complicating childbirth; D64.9 Anemia, unspecified; O99.344 Other mental disorders complicating childbirth; F41.9 Anxiety disorder, unspecified; Z86.19 Personal history of other infectious and parasitic diseases; Z88.1 Allergy status to other antibiotic agents
CPT/HCPCS: 36415; 80307; 81005; 85025; 85027; 86592; 86850; 86900; 86901; J2300; J2590; J3490